=== PATIENT | female | born 1975 | race African-American/Black ===

== ENCOUNTER 2021-10-12 07:35 | Emergency (ER) | payer SELFPAY ==
[~2021-10-12] VITALS: Ht 160 cm; Wt 61.1 kg
--- NOTE | 2021-10-12 08:51 | PHYS DOC ---
Past Medical History Past Surgical History: Tubal ligation Smoking Status: Current Every Day Smoker Additional Information: 10/22 ppd Alcohol Use: Heavy Additional Information: reports drinking [employer] before work every morning, and [employer] every night after work Social History Narrative: denies General Adult EDM: Chief Complaint: COUGH HPI: HPI: Patient is a 45 year old female with history of tobacco abuse who presents with cough, fatigue, headache for the past 2 days. Also complains of wheezing in the morning that resolves during the course of the day. Wheezing has been audible to her and others in her family. States that she has no direct sick contacts, but 4 separate people in her office at [employer] have been out with "pneumonia." She states that she has not been near these people for prolonged periods of time. She is not vaccinated against Covid. States that she is "holistic" and does not like the ideas of vaccines or medicine in general. Denies shortness of breath, chest pain, fever/chills, sore throat. Review of Systems: Review of Systems: Constitutional: Denies fever or chills. Reports fatigue. [] Eyes: Denies change in visual acuity. [] HENT: Denies nasal congestion or sore throat. [] Respiratory: Reports cough and wheezing. Denies shortness of breath. [] Cardiovascular: Denies chest pain or edema. [] GI: Denies abdominal pain, nausea, vomiting, bloody stools or diarrhea. [] : Denies dysuria. [] Musculoskeletal: Denies back pain or joint pain. [] Integument: Denies rash. [] Neurologic: Reports mild headache. Denies focal weakness or sensory changes. [] Psychiatric: Denies depression or anxiety. [] Heart Score: C/O Chest Pain: No Allergies: Allergies: Allergies Coded Allergies Type Severity Reaction Last Updated Verified No Known Drug Allergies 10/12/21 No Physical Exam: PE: Constitutional: Well developed, well nourished, no acute distress, non-toxic appearance. [] Neck: Normal range of motion, no tenderness, supple, no stridor. [] Cardiovascular:Heart rate regular rhythm, no murmur [] Lungs & Thorax: Bilateral breath sounds clear to auscultation. No wheezes. Normal work of breathing. [] Abdomen: Bowel sounds normal, soft, no tenderness, no masses, no pulsatile masses. [] Skin: Warm, dry, no erythema, no rash. [] Extremities: No tenderness, no cyanosis, no clubbing, ROM intact, no edema. [] Neurologic: Alert and oriented X 3, normal motor function, normal sensory function, no focal deficits noted. [] Psychologic: Affect normal, judgement normal, mood normal. [] Current Patient Data: Vital Signs: Vital Signs Date Time Temp Pulse Resp B/P (MAP) Pulse Ox O2 Delivery O2 Flow Rate FiO2 10/12/21 08:20 99.1 88 20 135/80 (98) 97 Room Air 99.1 EKG: EKG: [] Radiology/Procedures: Radiology/Procedures: [] Impression: [address] [address] IMAGING REPORT Signed PATIENT: JULIA CHOI EACCOUNT: [id number] : 1975 LOCATION: ER AGE: 45 SEX: F EXAM STATUS: REG ER ORD. PHYSICIAN: CAROLEE KENDRICK MD REASON: lateral only please PROCEDURE: CHEST PA & LATERAL EXAM: Chest, single view. HISTORY: Possible pectus excavatum. COMPARISON: 10/12/2021 FINDINGS: A lateral view of the chest is obtained. There is no infiltrate, pleural effusion or pneumothorax. There are few calcified granulomas. There is a minimal chest wall pectus deformity. IMPRESSION: No acute pulmonary finding. Electronically signed by: Paola Beth MD (10/12/2021 9:57 AM) [id number] DICTATED and SIGNED BY: PAOLA BETH MD DATE: 10/12/21 [id number] [place], [place] [id number] IMAGING REPORT Signed PATIENT: JULIA CHOI EACCOUNT: [id number] : 1975 LOCATION: ER AGE: 45 SEX: F EXAM STATUS: REG ER ORD. PHYSICIAN: CAROLEE KENDRICK MD REASON: complains of wheezing PROCEDURE: CHEST AP ONLY Single AP view of the chest. Comparison: None. Indication: Wheezing Findings: The appears enlarged, however, patient could have a pectus deformity.. There is no pneumothorax or effusion. There is focal opacity in the medial right lung base. Impression: 1. Focal opacity in the right medial lung base as well as mild cardiomegaly versus pectus excavatum deformity. This should be further evaluated with a lateral view of the chest. Electronically signed by: Tres Medeiros MD (10/12/2021 9:16 AM) [id number] DICTATED and SIGNED BY: TRES MEDEIROS MD DATE: 10/12/21 [id number] 0 Course & Med Decision Making: Course & Med Decision Making Pertinent Labs and Imaging studies reviewed. (See chart for details) Patient 45-year-old female with history of tobacco abuse, not vaccinated for Covid, who presents with 2 days of cough, wheezing, fatigue, and mild headache. Afebrile with normal vital signs and O2 sat on arrival. Well-appearing on exam. No wheezing heard on auscultatory exam and has normal work of breathing. Given no history of wheezing and tobacco abuse will check CXR, will give as needed albuterol inhaler Rx. We will check Covid and influenza swabs. 0851 CXR with right lung base opacity as read by radiologist. Will treat with amoxi cillin. Rapid Covid and influenza test negative. Covid PCR test negative. Advised to self isolate until she knows the results of PCR testing. Aric Disclaimer: Aric Disclaimer: This electronic medical record was generated, in whole or in part, using a voice recognition dictation system. Departure Departure Impression: Primary Impression: Pneumonia Disposition: 01 HOME / SELF CARE / HOMELESS Condition: STABLE Referrals: NO PCP (PCP) Additional Instructions: There is a small evidence of pneumonia on your chest x-ray Please take amoxicillin as prescribed. Please take the entire 7-day course of antibiotics. Do not stop them early. You can use an inhaler 2 puffs every 4 hours as needed for wheezing. You do not need to use the inhaler if you are not wheezing. Since you do not have a PCP, please call the number for the [facility] at [phone]. If you develop high fevers, shaking chills, shortness of breath, or other new/concerning symptoms please return to the emergency department for reevaluation. You need to quarantine until you know the results of your Covid PCR test. This should be available tomorrow. If you do not hear back by 9 AM tomorrow please call the emergency department for your results. Scripts Albuterol Sulfate (PROAIR HFA INHALER) 8.5 Gm Hfa.aer.ad 2 PUFF IH PRN Q4-6HRS PRN for wheezing for 21 Days, #1 INHALER 0 Refills Prov: CAROLEE KENDRICK MD 10/12/21 Amoxicillin (AMOXICILLIN) 500 Mg Tablet 1 TAB PO TID for 7 Days, #21 TAB 0 Refills Prov: CAROLEE KENDRICK MD 10/12/21 CAROLEE KENDRICK MD Oct 12, 2021 08:51
--- NOTE | 2021-10-12 09:19 | RAD ---
Single AP view of the chest. Comparison: None. Indication: Wheezing Findings: The appears enlarged, however, patient could have a pectus deformity.. There is no pneumothorax or e ffusion. There is focal opacity in the medial right lung base. Impression: 1. Focal opacity in the right medial lung base as well as mild cardiomegaly versus pectus excavatum d eformity. This should be further evaluated with a lateral view of the chest. Electronically signed by: Tres Medeiros MD (10/12/2021 9:16 AM) [id number]
[2021-10-12 09:22] LABS: INFLUENZA A PATIENT NEGATIVE (NEGATIVE); INFLUENZA B PATIENT NEGATIVE (NEGATIVE)
--- NOTE | 2021-10-12 09:59 | RAD ---
EXAM: Chest, single view. HISTORY: Possible pectus excavatum. COMPARISON: 10/12/2021 FINDINGS: A lateral view of the chest is obtained. There is no infiltrate, pleural effusion or pneumo thorax. There are few calcified granulomas. There is a minimal chest wall pectus deformity. IMPRESSION: No acute pulmonary finding. Electronically signed by: Paola Magallon MD (10/12/2021 9:57 AM) [id number]
[2021-10-12] MEDS ORDERED: AMOX500T PO (10:07)
[2021-10-12] MEDS ORDERED: ALBU2.5V8 IH (10:08)
[2021-10-12 10:13] VITALS: BP 131/79
--- NOTE | 2021-10-12 17:12 | NUR ---
IP: Informed pt of negative covid test. Pt verbalized understanding.
== END 2021-10-12 10:13 | disposition home or self-care (01) ==
LOC: ER 07:35
DX: J18.9 Pneumonia, unspecified organism (principal); Z20.822 Contact with and (suspected) exposure to COVID-19; F17.200 Nicotine dependence, unspecified, uncomplicated; Z98.51 Tubal ligation status; F10.20 Alcohol dependence, uncomplicated; Y90.9 Presence of alcohol in blood, level not specified
CPT/HCPCS: 71045; 71046; 87426; 87804; 99284; U0003; U0005